=== PATIENT | male | born 1995 | race Two or more races ===

== ENCOUNTER 2020-05-10 14:32 | Emergency (ER) | payer MEDICAID ==
[~2020-05-10] VITALS: Ht 167.6 cm; Wt 69.0 kg
[2020-05-10 18:53] VITALS: BP 130/90
== END 2020-05-10 18:51 | disposition home or self-care (01) ==
LOC: ER 14:34
DX: S42.021A Displaced fracture of shaft of right clavicle, initial encounter for closed fracture (principal); V00.131A Fall from skateboard, initial encounter; Y93.51 Activity, roller skating (inline) and skateboarding; Y92.89 Other specified places as the place of occurrence of the external cause; Y99.8 Other external cause status
CPT/HCPCS: 99284